=== PATIENT | female | born 1990 | race Caucasian/White ===

== ENCOUNTER 2016-08-20 12:06 | Inpatient (IN) | payer MEDICAID ==
[~2016-08-20] VITALS: Ht 157.5 cm; Wt 71.6 kg
[~2016-08-20 12:06] MED LIST: FERR134T PO; FOLI20CA PO; PREN1TAB62 PO
[2016-08-20 12:15] VITALS: Ht 157.5 cm; Wt 71.6 kg
[2016-08-20 12:16] VITALS: BP 128/67; RESP 16
[2016-08-20] MEDS ORDERED: LACTATED RINGER'S 1,000 ML IV SCH (12:33)
[2016-08-20] MEDS ORDERED: AMPICILLIN 2 GM/NS (PMX) 100 ML IV ONE (13:00)
[2016-08-20] MEDS ORDERED: METHYLERGONOVINE 0.2 MG INJ IM PRN (13:00)
[2016-08-20] MEDS ORDERED: OXYTOCIN 30 UNITS/LR 500 ML IV SCH ×3 (13:00)
[2016-08-20] MEDS ORDERED: BUTORPHANOL 2 MG INJ IV PRN (13:00)
[2016-08-20] MEDS ORDERED: LACTATED RINGER'S 1,000 ML IV PRN (13:00)
[2016-08-20] MEDS ORDERED: CARBOPROST 250 MCG INJ IM PRN (13:00)
[2016-08-20] MEDS ORDERED: MISOPROSTOL 200 MCG TAB PR PRN (13:00)
[2016-08-20] MEDS ORDERED: LIDOCAINE 1% (MPF) 30 ML INJ INJ PRN (13:00)
[2016-08-20] MEDS ORDERED: OXYTOCIN 30 UNITS/LR 500 ML IV PRN (13:00)
--- NOTE | 2016-08-20 13:37 | RADRPT ---
PROCEDURE: US OB. CLINICAL INDICATION: The patient is in labor. No records. Uncertain size and dates. TECHNIQUE: Multiple sonographic images of the uterus were obtained. The images were revi ewed on a PACS workstation. COMPARISON: No prior studies are available for comparison. FINDINGS: There is a single live intrauterine gestation. heart rate is 154 beats per minute. Measurements were made in order to determine age. The results are as follows: BPD = 8.85 cm. HC = 31.43 cm. AC = 32.67 cm. FL = 7.56 cm. Estimated weight is 3053 +/- 458 grams. LMP growth percentile is 21%. Menstrual age by ultrasound dates is 36 weeks 4 days. The estimated date of delivery is 09/13/2016. Position is cephalic and placenta is anterior grade II. There is no evidence for an abruption or lillian centa previa. IMPRESSION: 1. Single live intrauterine gestation of 36 weeks 4 days menstrual age by ultrasound dates. 2. The estimated date of delivery is 09/13/2016. RPTAT: QQ .Mike Mendez MD, MD Date Time Electronically viewed and signed by .Mike Mendez MD, on 08/20/2016 13:37 .R/
[2016-08-20 15:29] LABS: BASOPHILS % 0.2 % (0.0-2.0); EOSINOPHILS # 0.1 10^3/ul (0.0-0.5); EOSINOPHILS % 0.6 % (0.0-7.0); HEMATOCRIT 37.1 % (37.0-47.0); HEMOGLOBIN 12.7 g/dl (12.0-16.0); LYMPHOCYTES # 0.9 10^3/ul (0.8-2.9); LYMPHOCYTES % 8.6 % (15.0-51.0); MEAN CORPUSCULAR HEMOGLOBIN 28.9 pg (29.0-33.0); MEAN CORPUSCULAR HGB CONC 34.3 g/dl (32.0-37.0); MEAN CORPUSCULAR VOLUME 84.2 fl (82.0-101.0); MONOCYTE # 0.6 10^3/ul (0.3-0.9); MONOCYTES % 5.7 % (0.0-11.0); NEUTROPHIL # 9.2 10^3/ul (1.6-7.5); NEUTROPHILS % 84.9 % (39.0-77.0); PLATELET COUNT 191 10^3/UL (140-440); RED CELL DISTRIBUTION WIDTH 13.5 % (11.5-14.5); UNCORRECTED WBC 10.9 10^3/ul (4.8-10.8); WHITE BLOOD COUNT 10.9 10^3/ul (4.8-10.8)
[2016-08-20 15:30] LABS: CONDITION 1
[2016-08-20 15:43] LABS: INR 1.02; PROTIME 13.4 Sec (12.2-14.2)
[2016-08-20 15:44] LABS: PARTIAL THROMBOPLASTIN TIME 28.1 Sec (25.0-35.0)
[2016-08-20] MEDS ORDERED: AMPICILLIN 1 GM/NS (PMX) 50 ML IV SCH (17:00)
[2016-08-20] MEDS ORDERED: IBUPROFEN 600 MG TAB PO ONE (19:26)
[2016-08-20 20:30] VITALS: BP 108/56; PULSE 63; RESP 18
[2016-08-20] MEDS ORDERED: OXYCODONE/ASPIRIN (4.88/325) TAB PO PRN ×2 (21:00)
[2016-08-20] MEDS ORDERED: BENZOCAINE 20% 56 ML SPRAY TOP PRN (21:00)
[2016-08-20] MEDS ORDERED: WITCH HAZEL/GLYCERIN PAD PR PRN (21:00)
[2016-08-20] MEDS ORDERED: ACETAMINOPHEN/CODEINE #3 TAB PO PRN ×2 (21:00)
[2016-08-20] MEDS ORDERED: ACETAMINOPHEN 325 MG TAB PO PRN (21:00)
[2016-08-20] MEDS ORDERED: ONDANSETRON 4 MG INJ IV PRN (21:00)
[2016-08-20] MEDS ORDERED: LANOLIN 7 GM TUBE TOP PRN (21:00)
[2016-08-20] MEDS ORDERED: DIBUCAINE 1% 30 GM OINT PR PRN (21:00)
[2016-08-20] MEDS: SENNA/DOCUSATE NA (8.6MG/50MG) TAB PO SCH (22:26)
[2016-08-20] MEDS: OXYTOCIN 30 UNITS/LR 500 ML IV SCH (22:28)
[2016-08-20] MEDS: IBUPROFEN 600 MG TAB PO SCH (23:49)
[2016-08-21] VITALS: BP 121/62; PULSE 73; RESP 18
[2016-08-21] MEDS: OXYTOCIN 30 UNITS/LR 500 ML IV SCH (02:31)
[2016-08-21 03:52] VITALS: BP 108/58; PULSE 63; RESP 18
[2016-08-21] MEDS: IBUPROFEN 600 MG TAB PO SCH ×4 (05:31→23:35)
[2016-08-21 08:26] LABS: BASOPHILS % 0.3 % (0.0-2.0); EOSINOPHILS # 0.1 10^3/ul (0.0-0.5); EOSINOPHILS % 0.9 % (0.0-7.0); HEMATOCRIT 35.1 % (37.0-47.0); HEMOGLOBIN 12.1 g/dl (12.0-16.0); LYMPHOCYTES # 1.2 10^3/ul (0.8-2.9); LYMPHOCYTES % 9.2 % (15.0-51.0); MEAN CORPUSCULAR HEMOGLOBIN 29.2 pg (29.0-33.0); MEAN CORPUSCULAR HGB CONC 34.4 g/dl (32.0-37.0); MEAN CORPUSCULAR VOLUME 84.8 fl (82.0-101.0); MEAN PLATELET VOLUME 9.2 fl (7.4-10.4); MONOCYTE # 0.7 10^3/ul (0.3-0.9); MONOCYTES % 5.2 % (0.0-11.0); NEUTROPHIL # 10.8 10^3/ul (1.6-7.5); NEUTROPHILS % 84.4 % (39.0-77.0); PLATELET COUNT 173 10^3/UL (140-440); RED BLOOD COUNT 4.13 10^6/ul (4.20-5.40); RED CELL DISTRIBUTION WIDTH 13.4 % (11.5-14.5); UNCORRECTED WBC 12.8 10^3/ul (4.8-10.8); WHITE BLOOD COUNT 12.8 10^3/ul (4.8-10.8)
[2016-08-21 08:30] VITALS: BP 99/60; PULSE 76; RESP 18
[2016-08-21 08:41] LABS: CONDITION 1
[2016-08-21] MEDS: SENNA/DOCUSATE NA (8.6MG/50MG) TAB PO SCH ×2 (08:53→21:05)
--- NOTE | 2016-08-21 11:51 | HP ---
Date/Time of Note Date/Time of Note DATE: 08/21/16 TIME: 11:44 OB - History Hx of Present Free Text/Dictation 26 years old [place] female admitted to [facility] in labor, pelvic exam on admission cervix 4 cm dilated 70% effacement ,vertex at -2 stations, contractions 3-5 minutes apart good heart tracing, category 1, no decelerations, Estimated Due Date: Aug 28, 2016 : 4 Para: 3 Spontaneous : 0 Therapeutic : 0 Care: Good Care Ultrasounds: Normal mid trimester US Obstetrical Complications: None Medical Complications: None Past Family/Social History * Past Medical, Surgical, Family and Obstetric Histories reviewed from chart. Rubella: immune RPR/VDRL: Negative GBS Status: Negative HBsAG: Negative OB Admission Exam Vital Signs Vital Signs Vital Signs Date Time Temp Pulse Resp B/P Pulse Ox O2 Delivery O2 Flow Rate FiO2 08/21/16 03:52 98.0 63 18 108/58 Room Air Physical Exam HEENT: WNL Lungs: Clear, Equal Abdomen: WNL Extremities: Normal Reflexes: Normal Cervical Dilatation: 4cm Effacement: 75% Station: -2 Membranes: Intact Heart Rate: 120's Decelerations: No Decelerations Varibility: Moderate Contractions on Admission: < 5 Minutes Apart Intensity: Moderate Last 72 hours Lab Results CBC & BMP 08/20/16 13:00 08/21/16 07:16 PETER FUENTES MD Aug 21, 2016 11:51
[2016-08-21 11:53] VITALS: BP 104/63; PULSE 64; RESP 18
--- NOTE | 2016-08-21 11:55 | LDN ---
Date/Time of Note Date/Time of Note DATE: 08/21/16 TIME: 11:51 Delivery Summary Normal spontaneous vaginal delivery of a baby girl from [place] position shoulder is delivered without any difficulty cord was clamped after stopped pulsation, placenta spontaneous expulsion inspected complete blood loss 200 mL Placenta Delivered: Spontaneously Meconium: none Perineum intact?: Yes Anesthesia type: Epidural Estimated blood loss: 200 Sponge & Needle done & correct: Yes All needle counts correct: Yes Any foreign bodies felt in the: No Problems: Delivery Information Sex Infant Sex: female Apgars 1 Minute: 9 5 Minute: 9 Suctioning Nose & mouth suctioned at elizabeth: Yes Delee suction performed: No Umbilical Cord Umbilical cord with: 3 Vessels Cord presentations: no nuchal cord Cord Blood was obtained: Yes PETER FUENTES MD Aug 21, 2016 11:55
--- NOTE | 2016-08-21 11:57 | PN ---
Date/Time of Note Date/Time of Note DATE: 08/21/16 TIME: 11:56 OB Subjective Subjective Subjective Post day Afebrile abdomen soft uterus firm lochia normal extremity normal ambulation encouraged Laboratory Tests Test 08/20/16 12:25 08/20/16 13:00 08/21/16 07:16 Membranes Rupture POSITIVE Activated Partial Thromboplast Time 28.1Sec Basophils # 0.010^3/ul 0.010^3/ul Basophils % 0.2% 0.3% Blood Morphology Comment Eosinophils # 0.110^3/ul 0.110^3/ul Eosinophils % 0.6% 0.9% Hematocrit 37.1% 35.1% Hemoglobin 12.7g/dl 12.1g/dl Hepatitis B Surface Antigen NEGATIVE INR International Normalized Ratio 1.02 Lymphocytes # 0.910^3/ul 1.210^3/ul Lymphocytes % 8.6% 9.2% Mean Corpuscular Hemoglobin 28.9pg 29.2pg Mean Corpuscular Hemoglobin Concent 34.3g/dl 34.4g/dl Mean Corpuscular Volume 84.2fl 84.8fl Mean Platelet Volume 9.0fl 9.2fl Monocytes # 0.610^3/ul 0.710^3/ul Monocytes % 5.7% 5.2% Neutrophils # 9.210^3/ul 10.810^3/ul Neutrophils % 84.9% 84.4% Nucleated Red Blood Cells # 0.010^3/ul 0.010^3/ul Nucleated Red Blood Cells % 0.0/100WBC 0.0/100WBC Platelet Count 21220^3/UL 31004^3/UL Prothrombin Time 13.4Sec Prothrombin Time Ratio 1.0 Rapid Plasma Reagin NONREACTIVE Red Blood Count 4.4010^6/ul 4.1310^6/ul Red Cell Distribution Width 13.5% 13.4% White Blood Count 10.910^3/ul 12.810^3/ul Current Medications Medications (Trade) Dose Ordered Sig/Eloy Route PRN Reason Start Time Stop Time Status Last Admin Dose Admin Lactated Ringer's 1,000 ml @ 125 mls/hr Q8H IV 08/20/16 12:33 08/20/16 20:57 DC 08/20/16 13:03 Ampicillin 100 ml @ 100 mls/hr ONCE ONCE IV 08/20/16 13:00 08/20/16 13:59 DC 08/20/16 13:03 Ampicillin 50 ml @ 100 mls/hr Q4H IV 08/20/16 17:00 08/20/16 20:57 DC 08/20/16 17:03 Oxytocin/Lactated Ringer's 500 ml @ 0 mls/hr TITRATE IV 08/20/16 13:00 08/20/16 20:57 DC 08/20/16 14:16 Butorphanol Tartrate (Stadol) 2 mg Q2H PRN IV PAIN 08/20/16 13:00 08/20/16 20:57 DC Lidocaine 30 ml 30 ml ONCE PRN INJ EPISIOTOMY/TEARING 08/20/16 13:00 08/20/16 20:57 DC Oxytocin/Lactated Ringer's 500 ml @ 125 mls/hr ONCE -MAY REPEAT X1 IV 08/20/16 13:00 08/20/16 20:57 DC 08/20/16 17:27 Oxytocin/Lactated Ringer's 500 ml @ 125 mls/hr ONCE IV 08/20/16 13:00 08/20/16 20:57 DC 08/20/16 17:54 Lactated Ringer's 1,000 ml @ 2,000 mls/hr Q30M PRN IV PRE-EPIDURAL BOLUS 08/20/16 13:00 08/20/16 20:57 DC Oxytocin/Lactated Ringer's 500 ml @ 0 mls/hr ONCE PRN IV For Hemorrhage Management 08/20/16 13:00 08/20/16 20:57 DC Methylergonovine Maleate (Methergine) 0.2 mg ONCE PRN IM VAGINAL BLEEDING 08/20/16 13:00 08/20/16 20:57 DC Carboprost Tromethamine (Hemabate) 250 mcg ONCE PRN IM VAGINAL BLEEDING 08/20/16 13:00 08/20/16 20:57 DC Misoprostol (Cytotec) 1,000 mcg ONCE PRN AR VAGINAL BLEEDING 08/20/16 13:00 08/20/16 20:57 DC Ibuprofen 600 mg 600 mg ONCE ONCE PO 08/20/16 19:26 08/20/16 19:28 DC 08/20/16 19:47 Oxytocin/Lactated Ringer's 500 ml @ 125 mls/hr Q4H IV 08/20/16 20:54 08/21/16 04:53 DC 08/21/16 02:31 Ibuprofen (Motrin) 600 mg Q6 PO 08/21/16 00:00 08/21/16 05:31 Acetaminophen (Tylenol Tab) 650 mg Q4H PRN PO PAIN LEVEL 1-5 08/20/16 21:00 Acetaminophen/ Codeine Phosphate (Tylenol No.3) 1 tab Q4H PRN PO PAIN LEVEL 1-5 08/20/16 21:00 Acetaminophen/ Codeine Phosphate (Tylenol No.3) 2 tab Q4H PRN PO PAIN LEVEL 6-10 08/20/16 21:00 Oxycodone/Aspirin (Percodan) 1 tab Q3H PRN PO PAIN LEVEL 1-5 08/20/16 21:00 Oxycodone/Aspirin (Percodan) 2 tab Q3H PRN PO PAIN LEVEL 6-10 08/20/16 21:00 Ondansetron HCl (Zofran Inj) 4 mg Q6H PRN IV NAUSEA AND/OR VOMITING 08/20/16 21:00 Senna/Docusate Sodium (Senokot-S) 1 tab BID PO 08/20/16 21:00 08/21/16 08:53 Witch Linda/ Glycerin (Tucks Pads) 1 pad BEDSIDE MEDICATION PRN AR HEMORRHOID/EPISIOTMY PAIN 08/20/16 21:00 08/21/16 02:40 Benzocaine (Dermoplast [place]) 1 spray BEDSIDE MEDICATION PRN TOP HEMORRHOID/EPISIOTMY PAIN 08/20/16 21:00 08/21/16 02:40 Dibucaine (Nupercainal) 1 applic BEDSIDE MEDICATION PRN AR HEMORRHOID/EPISIOTMY PAIN 08/20/16 21:00 Lanolin (Qpy-H-Wfmbay) 1 applic BEDSIDE MEDICATION PRN TOP BEDSIDE FOR SRAVAN TO NIPPLES 08/20/16 21:00 08/21/16 02:40 Measles/Mumps/ Rubella Vaccine Live (Mmr Ii Vaccine) 0.5 ml ONCE ONCE SC* 08/22/16 09:00 08/22/16 09:01 Influenza Virus Vaccine (Fluzone) 0.5 ml ONCE ONCE IM* 08/22/16 09:00 08/22/16 09:01 PETER FUENTES MD Aug 21, 2016 11:56
[2016-08-21 16:30] VITALS: BP 110/64; PULSE 62; RESP 18
[2016-08-21 20:10] VITALS: BP 96/57; PULSE 67; RESP 18
[2016-08-22 04:10] VITALS: BP 92/50; PULSE 51; RESP 18
[2016-08-22] MEDS: IBUPROFEN 600 MG TAB PO SCH ×2 (06:00→12:22)
[2016-08-22 07:30] VITALS: BP 109/68; PULSE 65
[2016-08-22] MEDS ORDERED: MEASLES,MUMPS,RUBELLA VACCINE INJ SC* ONE (09:00)
[2016-08-22] MEDS ORDERED: INFLUENZA VIRUS VACCINE 0.5 ML (DISPENSING) IM* ONE (09:00)
[2016-08-22] MEDS: SENNA/DOCUSATE NA (8.6MG/50MG) TAB PO SCH (09:20)
--- NOTE | 2016-08-22 13:52 | PD.PPDC ---
CENTER ADMINISTRATOR Discharge Instruction Condition Patient Condition: Good Diet Diet: Resume Regular Diet Follow-up Follow-up with Physician: 2, Week/Weeks Return to clinic for [facility] Instructions: Fever greater than 101 Worsening abdominal pain More than 2 pads per hour OB Instructions: Breast Tenderness Blurried Vision Headache PETER FUENTES MD Aug 22, 2016 13:52
--- NOTE | 2016-08-22 13:54 | DS ---
Date/Time of Note Date/Time of Note DATE: 08/22/16 TIME: 13:53 Obstetrical Discharge Record Final Diagnosis Final Diagnosis: Term delivered Vaginal Delivery Obstetrical Delivery: Spontaneous Condition on Discharge Physical Assessment Last Vitals: day 2, afebrile, vital sign stable, abdomen soft uterus firm, lochia normal, stringently normal, recommended appointment in 2 weeks with the clinic for check Voiding: Yes Breast: Soft, non-tender, Filling Fundus: Firm Calf Tenderness: No Patient Condition: Good PETER FUENTES MD Aug 22, 2016 13:54
--- NOTE | 2016-08-22 13:57 | PDOCDIS ---
Discharge Instructions CONDITION Patient Condition: Good HOME CARE INSTRUCTIONS: Diet Instructions: Regular ACTIVITY: Activity Restrictions: Slowly Increase Activity Rest between Activity Avoid heavy lifting No Sexual Activity Do not Drive Bathing Restrictions: Shower FOLLOW UP/APPOINTMENTS Appointments Recommended to make appointment with the clinic for August 26 to DC her PETER Acevedo MD Aug 22, 2016 13:57
[2016-08-22] MEDS ORDERED: DIPHTH/TET/ACEL PERTUSS (ADULT) 0.5 ML VIAL IM* ONE (14:30)
--- NOTE | 2016-08-22 17:53 | PN ---
Date/Time of Note Date/Time of Note DATE: 08/22/16 TIME: 17:52 OB Subjective Subjective Subjective day 1 Afebrile abdomen soft uterus firm lochia normal ambulating without difficulty extremity negative. Current Medications Medications (Trade) Dose Ordered Sig/Eloy Route PRN Reason Start Time Stop Time Status Last Admin Dose Admin Lactated Ringer's 1,000 ml @ 125 mls/hr Q8H IV 08/20/16 12:33 08/20/16 20:57 DC 08/20/16 13:03 Ampicillin 100 ml @ 100 mls/hr ONCE ONCE IV 08/20/16 13:00 08/20/16 13:59 DC 08/20/16 13:03 Ampicillin 50 ml @ 100 mls/hr Q4H IV 08/20/16 17:00 08/20/16 20:57 DC 08/20/16 17:03 Oxytocin/Lactated Ringer's 500 ml @ 0 mls/hr TITRATE IV 08/20/16 13:00 08/20/16 20:57 DC 08/20/16 14:16 Butorphanol Tartrate (Stadol) 2 mg Q2H PRN IV PAIN 08/20/16 13:00 08/20/16 20:57 DC Lidocaine 30 ml 30 ml ONCE PRN INJ EPISIOTOMY/TEARING 08/20/16 13:00 08/20/16 20:57 DC Oxytocin/Lactated Ringer's 500 ml @ 125 mls/hr ONCE -MAY REPEAT X1 IV 08/20/16 13:00 08/20/16 20:57 DC 08/20/16 17:27 Oxytocin/Lactated Ringer's 500 ml @ 125 mls/hr ONCE IV 08/20/16 13:00 08/20/16 20:57 DC 08/20/16 17:54 Lactated Ringer's 1,000 ml @ 2,000 mls/hr Q30M PRN IV PRE-EPIDURAL BOLUS 08/20/16 13:00 08/20/16 20:57 DC Oxytocin/Lactated Ringer's 500 ml @ 0 mls/hr ONCE PRN IV For Hemorrhage Management 08/20/16 13:00 08/20/16 20:57 DC Methylergonovine Maleate (Methergine) 0.2 mg ONCE PRN IM VAGINAL BLEEDING 08/20/16 13:00 08/20/16 20:57 DC Carboprost Tromethamine (Hemabate) 250 mcg ONCE PRN IM VAGINAL BLEEDING 08/20/16 13:00 08/20/16 20:57 DC Misoprostol (Cytotec) 1,000 mcg ONCE PRN IN VAGINAL BLEEDING 08/20/16 13:00 08/20/16 20:57 DC Ibuprofen 600 mg 600 mg ONCE ONCE PO 08/20/16 19:26 08/20/16 19:28 DC 08/20/16 19:47 Oxytocin/Lactated Ringer's 500 ml @ 125 mls/hr Q4H IV 08/20/16 20:54 08/21/16 04:53 DC 08/21/16 02:31 Ibuprofen (Motrin) 600 mg Q6 PO 08/21/16 00:00 08/22/16 12:22 Acetaminophen (Tylenol Tab) 650 mg Q4H PRN PO PAIN LEVEL 1-5 08/20/16 21:00 Acetaminophen/ Codeine Phosphate (Tylenol No.3) 1 tab Q4H PRN PO PAIN LEVEL 1-5 08/20/16 21:00 Acetaminophen/ Codeine Phosphate (Tylenol No.3) 2 tab Q4H PRN PO PAIN LEVEL 6-10 08/20/16 21:00 Oxycodone/Aspirin (Percodan) 1 tab Q3H PRN PO PAIN LEVEL 1-5 08/20/16 21:00 Oxycodone/Aspirin (Percodan) 2 tab Q3H PRN PO PAIN LEVEL 6-10 08/20/16 21:00 Ondansetron HCl (Zofran Inj) 4 mg Q6H PRN IV NAUSEA AND/OR VOMITING 08/20/16 21:00 Senna/Docusate Sodium (Senokot-S) 1 tab BID PO 08/20/16 21:00 08/22/16 09:20 Witch Linda/ Glycerin (Tucks Pads) 1 pad BEDSIDE MEDICATION PRN IN HEMORRHOID/EPISIOTMY PAIN 08/20/16 21:00 08/21/16 02:40 Benzocaine (Dermoplast [place]) 1 spray BEDSIDE MEDICATION PRN TOP HEMORRHOID/EPISIOTMY PAIN 08/20/16 21:00 08/21/16 02:40 Dibucaine (Nupercainal) 1 applic BEDSIDE MEDICATION PRN IN HEMORRHOID/EPISIOTMY PAIN 08/20/16 21:00 Lanolin (Hfs-X-Pcwxgc) 1 applic BEDSIDE MEDICATION PRN TOP BEDSIDE FOR SRAVAN TO NIPPLES 08/20/16 21:00 08/21/16 02:40 Measles/Mumps/ Rubella Vaccine Live (Mmr Ii Vaccine) 0.5 ml ONCE ONCE SC* 08/22/16 09:00 08/22/16 09:01 DC Influenza Virus Vaccine (Fluzone) 0.5 ml ONCE ONCE IM* 08/22/16 09:00 08/22/16 09:01 DC 08/21/16 23:36 Diphtheria/ Tetanus/Acell Pertussis (Adacel) 0.5 ml ONCE ONCE IM* 08/22/16 14:30 08/22/16 14:31 DC 08/22/16 15:24 PETER FUENTES MD Aug 22, 2016 17:53
== END 2016-08-22 18:52 | disposition home or self-care (01) | DRG 775 ==
LOC: OBT 12:06 → L-D 12:06 → OBT 12:35 → L-D 12:42 → PP1 20:35
PROVIDERS: ADMIT Obstetrics & Gynecology; ATTEND Obstetrics & Gynecology
PROC: 10E0XZZ Delivery of Products of Conception, External Approach (ICD-10-PCS; principal; 2016-08-21)
DX: O80 Encounter for full-term uncomplicated delivery (principal); Z37.0 Single live birth; Z3A.00 Weeks of gestation of pregnancy not specified
CPT/HCPCS: 76815; 84112; 85025; 85610; 85730; 86592; 86900; 86901; 87340; 90686; 90715; G0463; J0290; J2590; J7120